=== PATIENT | female | born 1935 | race Two or more races ===

== ENCOUNTER 2017-08-30 17:40 | Inpatient (IN) | payer MEDICARE, OTHER ==
[~2017-08-30] VITALS: Ht 162.6 cm; Wt 77.3 kg
[2017-08-30] MEDS ORDERED: MORPHINE SULFATE INJ 2 MG/ML DISP.SYRIN IV ONE ×2 (18:30→20:00)
[2017-08-30] MEDS ORDERED: ONDANSETRON HCL/PF 4 MG/2 ML VIAL IV ONE (18:30)
[2017-08-30] MEDS ORDERED: IV NS 0.9% 500 ML BAG IV ONE (18:30)
[2017-08-30] MEDS ORDERED: ONDANSETRON HCL/PF 4 MG/2 ML VIAL ONE (18:39)
[2017-08-30] MEDS ORDERED: MORPHINE SULFATE INJ 4 MG/ML DISP.SYRIN ONE ×2 (18:40→19:58)
[2017-08-30 18:44] LABS: BASOPHILS # (AUTO) 0.1 /CMM (0.0-0.2); BASOPHILS % (AUTO) 0.4 % (0.0-2.0); EOSINOPHILS % (AUTO) 0.2 % (0.0-6.0); HEMATOCRIT 36 % (33-45); HEMOGLOBIN 12.6 g/dL (11.5-14.8); LYMPHOCYTES # (AUTO) 3.9 /CMM (0.8-4.8); LYMPHOCYTES % (AUTO) 26.8 % (20.0-44.0); MEAN CORPUSCULAR HGB CONC 35 g/dl (31.0-36.0); MEAN CORPUSCULAR VOLUME 87 fL (82-100); MONOCYTES # (AUTO) 1.2 /CMM (0.1-1.30); MONOCYTES % (AUTO) 7.9 % (2.0-12.0); NEUTROPHILS # (AUTO) 9.4 /CMM (1.8-8.9); NEUTROPHILS % (AUTO) 64.7 % (43.0-81.0); PLATELET COUNT (AUTO) 382 /CMM (150-450); RDW COEFFICIENT OF VARIATION 12.8 (11.5-15.0); RED BLOOD CELL COUNT(AUTO) 4.17 MIL/uL (4.0-5.2); WHITE BLOOD COUNT (AUTO) 14.6 K/uL (4.3-11.0)
[2017-08-30 18:55] LABS: INR 0.91 (0.85-1.15)
[2017-08-30 18:59] LABS: ALANINE AMINOTRANSFERASE 20 U/L (12-78); ALBUMIN 4.1 g/dL (3.4-5.0); ALKALINE PHOSPHATASE 93 U/L (46-116); ASPARTATE AMINOTRANSFERASE 20 U/L (15-37); BILIRUBIN,TOTAL 0.3 mg/dL (0.2-1.0); CALCIUM, SERUM 9.5 mg/dL (8.5-10.1); CARBON DIOXIDE 25 mmol/L (21-32); CHLORIDE 101 mmol/L (98-107); CREATININE 1.1 mg/dL (0.6-1.3); GLUCOSE 111 mg/dL (74-106); POTASSIUM 4.1 mmol/L (3.5-5.1); SODIUM SERUM 137 mmol/L (136-145); TOTAL PROTEIN, SERUM 8.3 g/dL (6.4-8.2); UREA NITROGEN, BLOOD 27 mg/dL (7-18)
--- NOTE | 2017-08-30 19:05 | NUR ---
RADIOLOGY BEDSIDE FOR X-RAY
--- NOTE | 2017-08-30 19:40 | NUR ---
DR.SAADAT JOBY HAT SIZER
--- NOTE | 2017-08-30 19:47 | NUR ---
CALLED NURSING SUP. FOR MS BED
--- NOTE | 2017-08-30 19:51 | NUR ---
MIKY PAGED, NARCISA MCKENNA MANAGER ENTERPRISE
--- NOTE | 2017-08-30 20:15 | NUR ---
PER PT AND FAMILY, UNABLE TO ATTAIN LIST OF MEDS TODAY. MADE AWARE. PT'S FAMILY MEMBER STATES SHE WILL BRING THE LIST OF MEDICATIONS TOMORROW MORNING.
--- NOTE | 2017-08-30 20:20 | NUR ---
MS 325-1 FOR R FEMUR FX, NARCISA MCKENNA ADMITTING
[2017-08-30] MEDS ORDERED: Z GUARD REMEDY 2 OZ OINT TP PRN (20:30)
[2017-08-30] MEDS ORDERED: MAG HYDROX/AL HYDROX/SIMETH 30 ML UDC PO PRN (20:30)
[2017-08-30] MEDS ORDERED: MAGNESIUM HYDROXIDE 30 ML UDC PO PRN (20:30)
[2017-08-30] MEDS ORDERED: ONDANSETRON HCL/PF 4 MG/2 ML VIAL IVP PRN (20:30)
[2017-08-30] MEDS ORDERED: MORPHINE SULFATE INJ 4 MG/ML DISP.SYRIN IV PRN (20:30)
[2017-08-30] MEDS ORDERED: ZOLPIDEM TARTRATE 5 MG TABLET PO PRN (20:30)
--- NOTE | 2017-08-30 21:06 | NUR ---
REPORT GIVEN TO SUYAPA GUERIN FOR ELSIE.
[2017-08-30] MEDS ORDERED: HYDROMORPHONE INJ 0.5 MG/0.5 ML SYRINGE ONE (22:13)
[2017-08-30] MEDS ORDERED: HYDROMORPHONE 1 MG/1 ML DISP.SYRIN IV ONE (22:30)
--- NOTE | 2017-08-30 22:35 | NUR ---
DR SCHMID AT BEDSIDE FOR TRACTION SPLINT APPLICATION. +CMS NOTED.
[2017-08-30 22:51] LABS: APPEARANCE,URINE SL CLOUDY (CLEAR); BILIRUBIN,URINE NEGATIVE (NEGATIVE); BLOOD, URINE 1+ Ery/uL (NEGATIVE); COLOR,URINE YELLOW (YELLOW); KETONES,URINE NEGATIVE (NEGATIVE); LEUKOCYTE ESTERASE ,URINE NEGATIVE (NEGATIVE); NITRITE, URINE POSITIVE (NEGATIVE); PROTEIN,URINE NEGATIVE (NEGATIVE); UGLUCOSE NEGATIVE (NEGATIVE); UROBILINOGEN,URINE 0.2 EU/dL (0.2)
[2017-08-30 23:04] LABS: BACTERIA,URINE Many /HPF (None Seen); SQUAMOUS EPITHELIAL CELL,UR Rare /HPF (None Seen); WBC,URINE 0-2 /HPF (0-3)
[2017-08-30 23:10] VITALS: BP 106/65
--- NOTE | 2017-08-30 23:30 | NUR ---
MS/RN NOTES RECEIVED PT FROM ER IN STABLE CONDITION. AA&OX4. MAURITIAN SPEAKING. ABLE TO UNDERSTAND AND SPEAK SOME [place]. BREATHING EVENLY ON O2 2L NC. WILL KEEP NPO FOR POSSIBLE SURGERY. L AC IV #20G HL, SITE CDI, PATENT. VALDOVINOS CATH INTACT DRAINING CLEAR YELLOW URINE. R LEG TRACTION SPLINT INTACT, + TOE MOVEMENT, COOL TO TOUCH. C/O OF PAIN TO R THIGH, 5/10 INCREASING DURING MOVEMENT. PATIENT AND FAMILY REFUSED PAIN MEDICATION AT THIS TIME. ALSO REFUSED TO CHANGE TO HOSPITAL GOWN D/T TO PAIN. PATIENT AND DAUGHTER MADE AWARE OF PLAN OF CARE INCLUDING MD CONSULT AND VERBALIZED UNDERSTANDING. DAUGHTER STATES SHE WILL BRING MEDICATION LIST IN MORNING. WILL KEEP PATIENT COMFORTABLE. BED AT LOWEST POSITION AND LOCKED, SIDE RAIL X 3 UP. SIDE TABLE AND CALL [place] WITHIN REACH. WILL CONTINUE TO MONITOR. BED ALARM ON. FAMILY AT BEDSIDE.
[2017-08-30] MEDS: IV NS 0.9% 1,000 ML IV PRN (23:56)
--- NOTE | 2017-08-31 03:00 | NUR ---
MS/RN NOTES PATIENT CALMLY SLEEPING, IN NO DISTRESS. IVF IN PROGRESS. SAFETY MEASURES IN PLACE. WILL CONTINUE TO MONITOR.
[2017-08-31 06:30] LABS: BASOPHILS % (AUTO) 0.3 % (0.0-2.0); EOSINOPHILS % (AUTO) 0.4 % (0.0-6.0); HEMATOCRIT 34 % (33-45); HEMOGLOBIN 11.5 g/dL (11.5-14.8); LYMPHOCYTES # (AUTO) 4.5 /CMM (0.8-4.8); LYMPHOCYTES % (AUTO) 30.5 % (20.0-44.0); MEAN CORPUSCULAR HGB CONC 34 g/dl (31.0-36.0); MEAN CORPUSCULAR VOLUME 89 fL (82-100); MONOCYTES # (AUTO) 1.5 /CMM (0.1-1.30); MONOCYTES % (AUTO) 10.2 % (2.0-12.0); NEUTROPHILS # (AUTO) 8.7 /CMM (1.8-8.9); NEUTROPHILS % (AUTO) 58.6 % (43.0-81.0); PLATELET COUNT (AUTO) 351 /CMM (150-450); RDW COEFFICIENT OF VARIATION 13.8 (11.5-15.0); RED BLOOD CELL COUNT(AUTO) 3.87 MIL/uL (4.0-5.2); WHITE BLOOD COUNT (AUTO) 14.9 K/uL (4.3-11.0)
[2017-08-31 06:32] VITALS: BP 119/74
[2017-08-31 06:47] LABS: CALCIUM, SERUM 8.4 mg/dL (8.5-10.1); CARBON DIOXIDE 27 mmol/L (21-32); CHLORIDE 104 mmol/L (98-107); CREATININE 0.9 mg/dL (0.6-1.3); GLUCOSE 97 mg/dL (74-106); MAGNESIUM 1.9 mg/dL (1.8-2.4); PHOSPHORUS 3.8 mg/dL (2.5-4.9); POTASSIUM 4.5 mmol/L (3.5-5.1); SODIUM SERUM 140 mmol/L (136-145); UREA NITROGEN, BLOOD 21 mg/dL (7-18)
--- NOTE | 2017-08-31 06:57 | NUR ---
MS/RN NOTES PATIENT SLEPT MOST OF NIGHT. O2 2L NC INTACT. NPO STATUS MAINTAINED. IVF IN PROGRESS. VALDOVINOS CATH INTACT DRAINING 700 ML OF SLIGHTLY CLOUD YELLOW URINE. NO C/O OF DISCOMFORT IN VAGINAL AREA. RIGHT LEG SPLINT IN PLACE, TOES WARM TO TOES, +MOVEMENT. C/O OF PAIN TO R THIGH EARLY THIS MORNING. ADMINISTERED MORHPHINE 2MG. WILL MONITOR FOR EFFECTIVENESS. CONTINUES TO REFUSED TO BE MOVED. ALL NEEDS MET. FALL PRECAUTION IN PLACE. WILL ENDORSE TO AM SHIFT FOR CONTINUITY OF CARE.
[2017-08-31 06:58] LABS: CHOLESTEROL 193 mg/dL (<200); HDL CHOLESTEROL 74 mg/dL (40-60); LDL 104 mg/dL (0-99); THYROID STIMULATING HORMONE 6.333 uIU/mL (0.358-3.74); TRIGLYCERIDES 68 mg/dL (30-150)
[2017-08-31] MEDS ORDERED: MELO-105 PO (07:22)
[2017-08-31] MEDS ORDERED: ICOS1CAP PO (07:22)
[2017-08-31] MEDS ORDERED: ALEN70TA45 PO (07:22)
[2017-08-31] MEDS ORDERED: GABA-534 PO (07:22)
[2017-08-31] MEDS ORDERED: DEXL60CA3 PO (07:22)
[2017-08-31] MEDS ORDERED: BUDE10.22 IH (07:22)
[2017-08-31] MEDS ORDERED: MECL-102 PO (07:22)
[2017-08-31] MEDS ORDERED: ROPI1TAB4 PO (07:22)
[2017-08-31] MEDS ORDERED: MONT10TA22 PO (07:22)
[2017-08-31] MEDS ORDERED: LORA0.5T PO (07:22)
[2017-08-31] MEDS ORDERED: ASPI-1169 PO (07:22)
--- NOTE | 2017-08-31 07:30 | NUR ---
RN OPENING NOTES RECEIVED PT. IN BED A&OX4. BREATHING UNLABORED, AND EVENLY ON OXYGEN AT 2L/MIN VIA NASAL CANNULA. NO S/S OF ACUTE DISTRESS. RIGHT LEG IS IMMOBILIZED IN A CAST WITH GAUZE WRAPPED AROUND LEG. VALDOVINOS CATHETER HAS 150 CC OF CLEAR, AND YELLOW URINE. PT. IS NPO AWAITING SURGERY IN THE AFTERNOON AFTER PT. IS CLEARED BY HOME HEALTH ASSISTANT. BED IS IN LOWEST, AND LOCKED POSITION. 2 SIDE RAILS UP, AND INSTRUCTED PT. TO USE CALL LIGHT FOR ASSISTANCE. PT.'S FAMILY IS AT BEDSIDE.
[2017-08-31 08:00] VITALS: BP 106/63
[2017-08-31] MEDS ORDERED: PANTOPRAZOLE 40 MG VIAL IV SCH (09:00)
[2017-08-31] MEDS ORDERED: CEPHALEXIN MONOHYDRATE 500 MG CAPSULE PO SCH (09:00)
[2017-08-31] MEDS ORDERED: MORPHINE SULFATE INJ 2 MG/ML DISP.SYRIN IVP ONE (09:30)
[2017-08-31] MEDS ORDERED: CEFTRIAXONE 1 G in IV D5W 50 ML IV SCH (11:00)
[2017-08-31] MEDS ORDERED: BACITRACIN 50000 UNITS/VIAL ONE (11:31)
[2017-08-31] MEDS ORDERED: BUPIVACAINE 0.25% 75 MG/30 ML VIAL ONE (11:31)
[2017-08-31] MEDS ORDERED: ANESTHESIA TRAY IN PYXIS 1 EA TRAY MC ONE (11:31)
[2017-08-31] MEDS ORDERED: HYDROMORPHONE INJ 0.5 MG/0.5 ML SYRINGE IV ONE (12:00)
--- NOTE | 2017-08-31 12:10 | NUR ---
RN PT. LEFT TO OR PT. SURGICAL CONSENTS SIGNED BY PT. PT. WAS TAKEN TO OR BY OR NURSES. REMOVED 700 CC OF CLEAR, AND YELLOW URINE FROM VALDOVINOS CATHETER. PT. 'S DAUGHTER LEFT WITH PT. AT BEDSIDE. SURGICAL PACKET WAS COMPLETED, AND CHART WAS TAKEN WITH OR NURSE, AND PT. PT. LEFT WITH OXYGEN WEARING NASAL CANNULA.
[2017-08-31] MEDS ORDERED: FENTANYL PF 100MCG/2ML AMPUL ONE (12:14)
[2017-08-31] MEDS ORDERED: ROCURONIUM BROMIDE 50 MG/5 ML ONE (12:14)
[2017-08-31] MEDS ORDERED: ALBUTEROL FS 2.5 MG/3 ML VIAL.NEB ONE (15:15)
[2017-08-31 16:00] VITALS: BP 101/60
[2017-08-31] MEDS ORDERED: MORPHINE SULFATE INJ 4 MG/ML DISP.SYRIN IV PRN (16:00)
[2017-08-31] MEDS ORDERED: TRAMADOL HCL 50 MG TABLET PO PRN (16:00)
--- NOTE | 2017-08-31 16:17 | NUR ---
RN NOTES PT. RETURNED TO SAME ROOM POST OP PT. RETURNED TO SAME ROOM IN STABLE CONDITION. POST OP ORDERS WERE FAXED BY OR NURSE, AND PRESCRIPTION ORDERS WERE GIVEN AT BEDSIDE. PT. HAD SCD DVT PUMPS ON BOTH LEGS. PT. HAD 3 SURGICAL INCISION SITES ON RIGHT LOWER EXTREMITY, NO SIGNS OF DRAINAGE FROM SITES. PT. WAS ABLE TO SWALLOW LIQUIDS, AND WAS GIVEN TRAMADOL PO FOR PAIN. VITAL SIGNS WERE IN WNL. INCENTIVE SPIROMETER WAS GIVEN TO PT TO USE POST OP WITH EDUCATION, WITH RETURN DEMONSTRATION. VITAL SIGNS BEING TAKEN PER POST OP PROTOCOL. WILL ENDORSE REPORT TO TAWNYA AGUILAR.
--- NOTE | 2017-08-31 16:30 | NUR ---
RECEIVED PT. FROM ORIN,RT HIP DRESSING DRY AND INTACT ,F/C TO GRAVITY WITH GOOD OUTPUT.IV INFUSING.DVT PUMPS ON.FAMILY AT BEDSIDE VISITING.VS STABLE.
[2017-08-31] MEDS: IV NS 0.9% 1,000 ML IV PRN (16:34)
--- NOTE | 2017-08-31 18:00 | NUR ---
NO CHANGE IN STATUS.
--- NOTE | 2017-08-31 19:30 | NUR ---
RN OPENING NOTES RECEIVED PATIENT IN BED, ALERT AND ORIENTED, ABLE TO MAKE NEEDS KNOWN, IN NO ACUTE DISTRESS, NO SOB, BREATHING EVEN AND UNLABORED. IVF INFUSING ORDERED, VALDOVINOS CATHETER DRAINING WELL WITH YELLOW URINE. ALL PATIENT'S NEEDS ATTENDED TO, PLACED CALL LIGHT WITHIN EASY REACH. WILL CONTINUE TO MONITOR.
[2017-08-31 20:31] VITALS: BP 104/60
[2017-08-31] MEDS ORDERED: CEFAZOLIN 1 GM ONE ×2 (21:17→21:30)
[2017-08-31] MEDS: CEFAZOLIN SODIUM 2 GM in IV SODIUM CHLORIDE 0.9% 50 ML IV SCH (21:32)
[2017-09-01] MEDS ORDERED: CEFAZOLIN 2 GM ONE (04:38)
[2017-09-01] MEDS: CEFAZOLIN SODIUM 2 GM in IV SODIUM CHLORIDE 0.9% 50 ML IV SCH ×2 (04:48→13:11)
[2017-09-01] MEDS: ACETAMINOPHEN 325 MG TABLET PO PRN (05:28)
[2017-09-01] MEDS: IV NS 0.9% 1,000 ML IV PRN (05:57)
--- NOTE | 2017-09-01 06:41 | NUR ---
RN CLOSING NOTE PATIENT IN BED, ASLEEP BUT EASILY AROUSABLE. NOTED WITH NO SOB, BREATHING EVEN AND UNLABORED AND IN NO ACUTE DISTRESS. VALDOVINOS CATHETER DRAINING WELL WITH YELLOW URINE, IVF INFUSING WELL ORDERED VIA IVP LINE ON LAC G#20. PLACED CALL LIGHT WITHIN EASY REACH, LOCKED BED IN LOW POSITION. ALL PATIENT'S NEEDS ATTENDED TO, SURGICAL SITE DRESSINGS REMAIN CLEAN AND INTACT. PLACED CALL LIGHT WITHIN EASY REACH. WILL ENDORSE TO AM SHIFT NURSE FOR CONTINUITY OF CARE.
--- NOTE | 2017-09-01 07:14 | NUR ---
RN OPENING NOTES RECEIVED PT. IN BED SLEEPING. BREATHING UNLABORED, AND EVENLY. NO S/S OF ACUTE DISTRESS. IV FLUIDS RUNNING AT 75 ML/HR. VALDOVINOS CATHETER HAS 175 CC OF CLEAR, AND YELLOW URINE. DVT PUMPS ARE ON AND WORKING. BED IS IN LOWEST, AND LOCKED POSITION. 2 SIDE RAILS UP, AND CALL LIGHT WITHIN REACH. ALL NEEDS MET. WILL CONTINUE TO ASSESS AND MONITOR.
--- NOTE | 2017-09-01 07:15 | NUR ---
RN NOTES PATIENT TOLERATING CLEAR LIQUID DIET WELL. UPGRADED TO FULL LIQUIDS. ENDORSED TO AM SHIFT NURSE FOR CONTINUITY OF CARE.
[2017-09-01 08:00] VITALS: BP 94/52
[2017-09-01 08:11] LABS: BASOPHILS % (AUTO) 0.3 % (0.0-2.0); EOSINOPHILS % (AUTO) 2.5 % (0.0-6.0); HEMATOCRIT 26 % (33-45); LYMPHOCYTES # (AUTO) 2.3 /CMM (0.8-4.8); LYMPHOCYTES % (AUTO) 25.6 % (20.0-44.0); MEAN CORPUSCULAR HGB CONC 34 g/dl (31.0-36.0); MEAN CORPUSCULAR VOLUME 88 fL (82-100); MONOCYTES # (AUTO) 1.3 /CMM (0.1-1.30); MONOCYTES % (AUTO) 14.5 % (2.0-12.0); NEUTROPHILS # (AUTO) 5.2 /CMM (1.8-8.9); NEUTROPHILS % (AUTO) 57.1 % (43.0-81.0); PLATELET COUNT (AUTO) 245 /CMM (150-450); RDW COEFFICIENT OF VARIATION 13.6 (11.5-15.0); RED BLOOD CELL COUNT(AUTO) 2.99 MIL/uL (4.0-5.2)
[2017-09-01 08:57] LABS: ALANINE AMINOTRANSFERASE 18 U/L (12-78); ALBUMIN 2.6 g/dL (3.4-5.0); ALKALINE PHOSPHATASE 51 U/L (46-116); ASPARTATE AMINOTRANSFERASE 28 U/L (15-37); BILIRUBIN,TOTAL 0.4 mg/dL (0.2-1.0); CALCIUM, SERUM 7.4 mg/dL (8.5-10.1); CARBON DIOXIDE 23 mmol/L (21-32); CHLORIDE 107 mmol/L (98-107); CREATININE 0.9 mg/dL (0.6-1.3); GLUCOSE 106 mg/dL (74-106); MAGNESIUM 1.7 mg/dL (1.8-2.4); PHOSPHORUS 2.7 mg/dL (2.5-4.9); POTASSIUM 3.6 mmol/L (3.5-5.1); SODIUM SERUM 139 mmol/L (136-145); TOTAL PROTEIN, SERUM 5.7 g/dL (6.4-8.2); UREA NITROGEN, BLOOD 11 mg/dL (7-18)
[2017-09-01] MEDS: PANTOPRAZOLE 40 MG TABLET.DR PO SCH (09:19)
[2017-09-01] MEDS: LEVOTHYROXINE SODIUM 50 MCG TABLET PO SCH (09:19)
[2017-09-01] MEDS: ENOXAPARIN SODIUM 40 MG/0.4 ML DISP.SYRIN SQ SCH (09:22)
[2017-09-01] MEDS: HYDROCODONE/APAP 5/325MG 1 EACH TABLET PO PRN ×2 (11:00→21:22)
[2017-09-01 15:29] LABS: BASOPHILS # (AUTO) 0.1 /CMM (0.0-0.2); BASOPHILS % (AUTO) 0.7 % (0.0-2.0); EOSINOPHILS % (AUTO) 3.2 % (0.0-6.0); HEMATOCRIT 28 % (33-45); HEMOGLOBIN 9.4 g/dL (11.5-14.8); LYMPHOCYTES # (AUTO) 3.1 /CMM (0.8-4.8); LYMPHOCYTES % (AUTO) 32.1 % (20.0-44.0); MEAN CORPUSCULAR HGB CONC 33 g/dl (31.0-36.0); MEAN CORPUSCULAR VOLUME 89 fL (82-100); MONOCYTES # (AUTO) 1.2 /CMM (0.1-1.30); MONOCYTES % (AUTO) 12.3 % (2.0-12.0); NEUTROPHILS # (AUTO) 4.9 /CMM (1.8-8.9); NEUTROPHILS % (AUTO) 51.7 % (43.0-81.0); PLATELET COUNT (AUTO) 203 /CMM (150-450); RDW COEFFICIENT OF VARIATION 13.5 (11.5-15.0); RED BLOOD CELL COUNT(AUTO) 3.19 MIL/uL (4.0-5.2); WHITE BLOOD COUNT (AUTO) 9.6 K/uL (4.3-11.0)
[2017-09-01 16:00] VITALS: BP 95/55
--- NOTE | 2017-09-01 19:20 | NUR ---
RN OPENING NOTES RECEIVED PT IN BED, ALERT AND ORIENTED, NO SOB, BREATHING EVEN AND UNLABORED AND IN NO ACUTE DISTRESS. PATIENT DENIES PAIN AT THIS TIME. DVT PUMPS ON, VALDOVINOS CATHETER DRAINING WELL WITH YELLOW URINE. DRESSINGS ON RIGHT THIGH CLEAN AND INTACT. ALL PATIENT'S NEEDS ATTENDED TO AT THIS TIME. PLACED BED IN LOW POSITION AND LOCKED IN PLACE. CALL LIGHT PLACED WITHIN EASY REACH. WILL CONTINUE TO MONITOR PT.
--- NOTE | 2017-09-01 19:45 | NUR ---
RN CLOSING NOTES PT. IS IN BED A&OX4, PT.'S DAUGHTER IS AT BEDSIDE. BREATHING UNLABORED, AND EVENLY ON ROOM AIR. NO S/S OF ACUTE DISTRESS. IV FLUIDS RUNNING AT 75 ML/HR. VALDOVINOS CATHETER HAD 850 CC OF CLEAR, AND YELLOW URINE OUTPUT. DVT PUMPS ARE ON AND WORKING. BED IS IN LOWEST, AND LOCKED POSITION. 2 SIDE RAILS UP, AND CALL LIGHT WITHIN REACH. ALL NEEDS MET. WILL ENDORSE REPORT TO NURSE.
[2017-09-01 20:00] VITALS: BP 114/71
--- NOTE | 2017-09-01 20:00 | NUR ---
RN NOTES PATIENT NOTED WITH ORAL TEMP:99.5 F, UPON ASSESSMENT, PT VERBALIZED THAT SHE IS FEELING AND THAT SHE DOESN'T NEED TYLENOL AT THIS TIME, DENIES PAIN, NO DIZZINESS. PT'S DAUGHTER AT BEDSIDE. WILL CONTINUE TO MONITOR PT.
--- NOTE | 2017-09-01 20:42 | NUR ---
RN NOTES PATIENT TOLERATED DINNER WELL. RECEIVED NEW ORDER FOR DIET UPGRADE. ALL ORDERS NOTED AND CARRIED OUT. WILL CONTINUE TO MONITOR PT.
[2017-09-02] MEDS: IV NS 0.9% 1,000 ML IV PRN (02:37)
--- NOTE | 2017-09-02 06:20 | NUR ---
RN CLOSING NOTES PATIENT IN BED, AWAKE, ALERT AND ORIENTED X 4, VERBALLY RESPONSIVE, NO SOB NOTED, BREATHING EVEN AND UNLABORED AND IS IN NO ACUTE DISTRESS. PT CONTINUES TO RECEIVE IVF ORDERED VIA IVP ON LAC G20. ALL PATIENT'S NEEDS ATTENDED TO THROUGHOUT THE SHIFT, MEDICATION GIVEN ORDERED. VALDOVINOS CATHETER DRAINING WELL WITH YELLOW URINE. PLACED BED IN LOW POSITION AND LOCKED IN PLACE, CALL LIGHT WITHIN EASY REACH.
--- NOTE | 2017-09-02 06:35 | NUR ---
RN NOTES PT REFUSING BLOOD DRAW. EXPLAINED RISKS TO PATIENT BUT PT CONTINUES TO REFUSE PER PATIENT IT HURTS SO MUCH. RESPECTED PATIENT'S REQUEST. LAB WILL SEND SOMEONE TO TRY AGAIN LATER IN THE MORNING. WILL ENDORSE TO AM SHIFT NURSE FOR CONTINUITY OF CARE.
--- NOTE | 2017-09-02 07:32 | NUR ---
MS RN OPENING NOTES RECEIVED PT FROM NIGHTSHIFT NURSE IN STABLE CONDITION. PT IS A/O X3. NO SOB OR ACUTE SIGNS OF DISTRESS NOTE. BREATHING IS EVEN AND UNLABORED. PT IS ON RA AND SATING WELL @96%. SHE DENIES PAIN AT THIS TIME. IV NOTED TO BE PATENT AND INTACT. NO REDNESS OR SIGNS OF INFILTRATION NOTED. VALDOVINOS CATHETER NOTED TO BE DRAINING CLEAR YELLOW URINE. WILL F/U WITH MD IN REGARDS TO IT'S DISCONTINUATION. SURGICAL DRESSINGS NOTED TO BE CLEAN, DRY, AND INTACT. BED IN LOW LOCKED POSITION, SIDE RAILS UP X2, CALL LIGHT WITHIN REACH, BED ALARM ON. WILL CONTINUE TO MONITOR.
[2017-09-02 08:00] VITALS: BP 109/61
[2017-09-02] MEDS: Magnesium 1GM/D5W 100ML PREMIX 100 ML IV SCH ×2 (08:25→10:47)
[2017-09-02] MEDS: ACETAMINOPHEN 325 MG TABLET PO PRN (08:26)
[2017-09-02] MEDS: PANTOPRAZOLE 40 MG TABLET.DR PO SCH (08:26)
[2017-09-02] MEDS: ENOXAPARIN SODIUM 40 MG/0.4 ML DISP.SYRIN SQ SCH (08:26)
[2017-09-02] MEDS: LEVOTHYROXINE SODIUM 50 MCG TABLET PO SCH (08:26)
[2017-09-02] MEDS: HYDROCODONE/APAP 5/325MG 1 EACH TABLET PO PRN ×2 (08:27→14:16)
[2017-09-02] MEDS ORDERED: CEFTRIAXONE 1 G in IV D5W 50 ML IV SCH (09:00)
[2017-09-02 09:38] LABS: BASOPHILS # (AUTO) 0.1 /CMM (0.0-0.2); BASOPHILS % (AUTO) 0.5 % (0.0-2.0); HEMATOCRIT 28 % (33-45); HEMOGLOBIN 9.3 g/dL (11.5-14.8); LYMPHOCYTES # (AUTO) 2.6 /CMM (0.8-4.8); LYMPHOCYTES % (AUTO) 22.7 % (20.0-44.0); MEAN CORPUSCULAR HGB CONC 34 g/dl (31.0-36.0); MEAN CORPUSCULAR VOLUME 88 fL (82-100); MONOCYTES # (AUTO) 1.2 /CMM (0.1-1.30); NEUTROPHILS # (AUTO) 7.1 /CMM (1.8-8.9); NEUTROPHILS % (AUTO) 62.8 % (43.0-81.0); PLATELET COUNT (AUTO) 261 /CMM (150-450); RDW COEFFICIENT OF VARIATION 13.4 (11.5-15.0); RED BLOOD CELL COUNT(AUTO) 3.13 MIL/uL (4.0-5.2); WHITE BLOOD COUNT (AUTO) 11.3 K/uL (4.3-11.0)
[2017-09-02 10:00] LABS: ALANINE AMINOTRANSFERASE 13 U/L (12-78); ALBUMIN 2.7 g/dL (3.4-5.0); ALKALINE PHOSPHATASE 56 U/L (46-116); ASPARTATE AMINOTRANSFERASE 22 U/L (15-37); BILIRUBIN,TOTAL 0.5 mg/dL (0.2-1.0); CARBON DIOXIDE 26 mmol/L (21-32); CHLORIDE 104 mmol/L (98-107); CREATININE 0.8 mg/dL (0.6-1.3); GLUCOSE 141 mg/dL (74-106); MAGNESIUM 2.4 mg/dL (1.8-2.4); PHOSPHORUS 1.7 mg/dL (2.5-4.9); POTASSIUM 3.4 mmol/L (3.5-5.1); SODIUM SERUM 138 mmol/L (136-145); TOTAL PROTEIN, SERUM 6.3 g/dL (6.4-8.2); UREA NITROGEN, BLOOD 6 mg/dL (7-18)
--- NOTE | 2017-09-02 10:39 | NUR ---
MS RN NOTES: VALDOVINOS CATHETER VERBAL ORDER GIVEN BY [employer] TO D/C PT'S VALDOVINOS CATHETER THERE IS NO LONGER A NEED. CATHETER WAS REMOVED WITH NO COMPLICATIONS. VOID TRAIL COMPLETED AND PT WAS ABLE TO VOID 80ML OF CLEAR, YELLOW URINE.
[2017-09-02 12:09] LABS: *SPE A/G RATIO 1.2 (0.7-1.7); *SPE ALBUMIN 3.6 g/dL (2.9-4.4); *SPE ALPHA-1-GLOBULIN 0.2 g/dL (0.0-0.4); *SPE ALPHA-2-GLOBULIN 0.8 g/dL (0.4-1.0); *SPE BETA GLOBULIN 0.9 g/dL (0.7-1.3); *SPE M-SPIKE Not Observed g/dL (Not Observed)
[2017-09-02] MEDS: Potassium Phosphate meq 11 MEQ in IV D5W 100 ML IV SCH ×2 (12:34→15:35)
[2017-09-02] MEDS ORDERED: RIVA10TA PO (15:11)
[2017-09-02] MEDS ORDERED: DOCU-141 PO (15:11)
[2017-09-02] MEDS ORDERED: LEVO50TA PO (15:11)
[2017-09-02] MEDS ORDERED: HYDR-3972 PO (15:11)
[2017-09-02] MEDS ORDERED: BUDE10.22 INH (15:11)
[2017-09-02] MEDS ORDERED: CEFT1VIA15 IV (15:11)
[2017-09-02 16:00] VITALS: BP 111/64
--- NOTE | 2017-09-02 18:51 | NUR ---
MS RN CLOSING NOTES PT REMAINS STABLE AND IS READY RICKY DISCHARGE TO ARU. REPORT CALLED AND GIVEN TO OJ THE RECEIVING NURSE. RN MADE AWARE THAT PT WILL BE LEAVING WITH HER IV SHE WILL CONTINUE ABX TREATMENT THERE. BELONGINGS VERIFIED WITH PT AND FAMILY PRIOR TO D/C. DISCHARGE INSTRUCTIONS GIVEN TO PT AND FAMILY. PT VERBALIZED FULL UNDERSTANDING OF D/C INSTRUCTIONS AND F/U APPOINTMENTS. PT SIGNED ALL D/C PAPERWORK. COPIES MADE AND PLACED IN CHART. PHOTO OF IV SITE TAKEN AND PLACED IN CHART. IV REMAINS PATENT AND INTACT. NO REDNESS OR SIGNS OF INFILTRATION NOTED. ELECTROLYTES REPLACED THROUGHOUT SHIFT. VITALS REMAIN STABLE. SURGICAL DRESSING REMAIN CLEAN, DRY, AND INTACT. WILL ENDORSE TO NIGHTSHIFT NURSE FOR ELSIE AND TO CARRY OUT D/C
== END 2017-09-02 19:30 | disposition short-term general hospital (02) | DRG 480 ==
LOC: ER 17:42 → MED 20:39
PROVIDERS: ADMIT Hospitalist; ATTEND Hospitalist
PROC: 0QS806Z Reposition Right Femoral Shaft with Intramedullary Internal Fixation Device, Open Approach (ICD-10-PCS; principal; 2017-08-31 13:23)
DX: S72.301A Unspecified fracture of shaft of right femur, initial encounter for closed fracture (principal); N17.0 Acute kidney failure with tubular necrosis; N39.0 Urinary tract infection, site not specified; G62.9 Polyneuropathy, unspecified; Y92.009 Unspecified place in unspecified non-institutional (private) residence as the place of occurrence of the external cause; K21.9 Gastro-esophageal reflux disease without esophagitis; M19.90 Unspecified osteoarthritis, unspecified site; W18.30XA Fall on same level, unspecified, initial encounter; I51.7 Cardiomegaly; I10 Essential (primary) hypertension; J45.909 Unspecified asthma, uncomplicated; Z79.01 Long term (current) use of anticoagulants; E03.9 Hypothyroidism, unspecified; B96.20 Unspecified Escherichia coli [E. coli] as the cause of diseases classified elsewhere; R42 Dizziness and giddiness; T45.8X5A Adverse effect of other primarily systemic and hematological agents, initial encounter
CPT/HCPCS: 36415; 71045-TC; 73501; 73552; 80048-TC; 80053-TC; 80061-TC; 81000-TC; 82306; 82728-TC; 83540-TC; 83735-TC; 84100-TC; 84155; 84165; 84439-TC; 84443-TC; 84484-TC; 85025-TC; 85652-TC; 85730-TC; 86850-TC; 87081-TC; 87086-TC; 87186-TC; 93307-TC; 97116-TC; 97530-TC; A4216; A4606; A6209; A6402; C1713; C9113; J0690; J0696; J1650; J2270; J2405; J2704; J2710; J3010; J3475; J3490; J7030; J7040; J7060; Z7610